=== PATIENT | female | born 1975 | race Two or more races ===

== ENCOUNTER 2018-02-07 18:56 | Emergency (ER) | payer OTHER ==
[2018-02-07 19:20] VITALS: BP 128/82; PULSE 94; TEMP 99; BMI 32.5
[2018-02-07] MEDS ORDERED: IBUPROFEN 600 MG TABLET (FP) PO ONE ×2 (20:18→20:26)
--- NOTE | 2018-02-07 20:23 | PDOC ---
History of Present Illness - General Chief Complaint: Pain Stated Complaint: SHOULDER PAIN Time Seen by Provider: 02/07/18 19:57 History Source: Patient Exam Limitations: No Limitations - History of Present Illness Initial Comments: 02/07/18 20:19 This Is a 43-year-old woman without significant past medical history presents emergency Department with atraumatic right shoulder pain starting last night while asleep. 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 Currently the pain is 6/10 in the right shoulder. Pain worsens with articulation of the shoulder. She denies trauma, fevers, chills, chest pain, shortness of breath. Past History - Past Medical History Allergies/Adverse Reactions: Allergies Allergy/AdvReac Type Severity Reaction Status Date / Time No Known Allergies Allergy Verified 02/07/18 19:19 Home Medications: Ambulatory Orders NK [No Known Home Medication] 02/07/18 - Suicide/Smoking/Psychosocial Hx Smoking Status: No Smoking History: Never smoked Have you smoked in the past 12 months: No Number of Cigarettes Smoked Daily: 0 Information on smoking cessation initiated: No Hx Alcohol Use: No Drug/Substance Use Hx: No Substance Use Type: None Review of Systems - Review of Systems Able to Perform ROS?: Yes Is the patient limited Swedish proficient: No Constitutional: No: Symptoms Reported HEENTM: No: Symptoms Reported Respiratory: No: Symptoms reported Cardiac (ROS): No: Symptoms Reported ABD/GI: No: Symptoms Reported : No: Symptoms Reported Musculoskeletal: Yes: See HPI Integumentary: No: Symptoms Reported Neurological: No: Symptoms reported Endocrine: No: Symptoms Reported Hematologic/Lymphatic: No: Symptoms Reported *Physical Exam - Vital Signs Last Vital Signs Temp Pulse Resp BP Pulse Ox 99.0 F 94 H 18 128/82 99 02/07/18 19:16 02/07/18 19:16 02/07/18 19:16 02/07/18 19:16 02/07/18 19:16 - Physical Exam General Appearance: Yes: Appropriately Dressed, Obese. No: Apparent Distress Neck: positive: Trachea midline, Supple Respiratory/Chest: positive: Lungs Clear, Normal Breath Sounds. negative: Respiratory Distress, Accessory Muscle Use Cardiovascular: positive: Regular Rhythm, Regular Rate, Other (2+ radial and ulnar pulses bilaterally) Musculoskeletal: positive: Normal Inspection, Decreased Range of Motion (Pain worsens with abduction, abduction and upper and downward rotation). 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 Pain worsens with abduction, abduction, upper rotation and downward rotation of the right shoulder 2+ radial and ulnar pulses present. Palpation of all surfaces reveals no deformity, dislocation, subluxation or crepitus X-ray of right shoulder, Motrin 600 mg orally now 02/07/18 21:17 X-ray of the shoulder as read by me: No fracture or dislocation is present. Before meals joints intact. We'll discharge the patient home with a sling and orthopedic follow-up *DC/Admit/Observation/Transfer Diagnosis at time of Disposition: Right shoulder pain Qualifiers: Chronicity: acute Qualified Code(s): M25.511 - Pain in right shoulder - Discharge Dispostion Disposition: HOME Condition at time of disposition: Stable Admit: No - Referrals Referrals: Jessenia Bose MD [Primary Care Provider] - Nilton Ladd MD [Staff Physician] - - Patient Instructions Additional Instructions: Take Tylenol or Motrin as needed for pain. Follow manufacturers instructions for appropriate dosage. Try not to carry weight as much as possible for the next 3 days. Use sling while awake. Ice applied to affected area may help alleviate pain. Return to emergency department for discoloration of the foot, numbness or tingling to the foot, worsening pain, or any other concerns. Thank you very much for choosing us to provide your emergent healthcare needs. - Post Discharge Activity Forms/Work/School Notes: Back to Work
== END 2018-02-07 21:37 | disposition home or self-care (01) ==
LOC: JERFT 18:56
DX: M25.511 Pain in right shoulder (principal); S49.81XA Other specified injuries of right shoulder and upper arm, initial encounter; Y93.H3 Activity, building and construction; Y93.89 Activity, other specified; Y92.59 Other trade areas as the place of occurrence of the external cause; Y99.0 Civilian activity done for income or pay
CPT/HCPCS: 73030-TC-RT-FY; 99281-25

== ENCOUNTER 2024-08-15 08:58 | Inpatient (IN) | payer OTHER, BC ==
[2024-08-11 16:19] VITALS: BMI 31.6
[2024-08-15] MEDS ORDERED: VANCOMYCIN 1,000 MG VIAL (RESTRICTED TO ID ONLY) ONE (10:34)
[2024-08-15] MEDS ORDERED: BUPIVACAINE HCL/PF 0.5% (5 MG/ML) 30 ML VIAL IJ ONE (11:56)
[2024-08-15] MEDS ORDERED: MIDAZOLAM HCL 2 MG/2 ML SINGLE DOSE VIAL ONE ×2 (11:56→12:30)
[2024-08-15] MEDS ORDERED: BUPIVACAINE LIPOSOME/PF (EXPAREL) 266 MG/20 ML VIAL ONE (11:57)
[2024-08-15] MEDS ORDERED: FENTANYL CITRATE/PF 50 MCG/ML VIAL ONE ×2 (11:57→16:19)
[2024-08-15] MEDS ORDERED: PROPOFOL 40 ML ONE ×3 (12:31→14:37)
[2024-08-15] MEDS ORDERED: TRANEXAMIC ACID 1000 MG/10 ML VIAL ONE ×2 (12:55→14:25)
[2024-08-15] MEDS ORDERED: BUPIVICAINE 0.25%/MORPH PF/KETOROLAC - 51ML DISP.SYRINGE IA ONE (14:11)
[2024-08-15] MEDS ORDERED: ONDANSETRON 4 MG/2 ML VIAL ONE (14:25)
[2024-08-15] MEDS ORDERED: HYDROmorphone HCL/PF 1 MG/ML VIAL ONE (15:22)
[2024-08-15] MEDS ORDERED: ONDANSETRON 4 MG/2 ML VIAL IVPUSH PRN (15:33)
[2024-08-15] MEDS ORDERED: MAG HYDROX/AL HYDROX/SIMETH 30 ML UNIT-DOSE CUP PO PRN (15:33)
[2024-08-15] MEDS ORDERED: guaiFENesin 200 MG/10 ML 10 ML UNIT-DOSE CUPS PO PRN (15:38)
[2024-08-15] MEDS ORDERED: ACETAMINOPHEN INJECTION 100 ML ONE (15:39)
[2024-08-15] MEDS: ACETAMINOPHEN 1000 MG/100 ML BAG IVPB ONE (15:40)
[2024-08-15] MEDS ORDERED: LACTATED RINGERS SOLUTION 1,000 ML IV SCH ×2 (15:45→16:00)
[2024-08-15] MEDS ORDERED: oxyCODONE HCL 5 MG TABLET PO PRN (15:50)
[2024-08-15] MEDS: ONDANSETRON 4 MG/2 ML VIAL IVPUSH PRN (16:27)
[2024-08-15] MEDS: oxyCODONE HCL 5 MG TABLET PO PRN (18:26)
[2024-08-15] MEDS: ACETAMINOPHEN 500 MG TABLET (FP) PO SCH (22:31)
[2024-08-15] MEDS: CEFAZOLIN SODIUM 2 GM in DEXTROSE 5%-WATER 100 ML IVPB SCH (22:31)
[2024-08-15] MEDS: SENNOSIDES/DOCUSATE COMBO (SENNA PLUS) TABLET (UD) PO SCH (22:32)
[2024-08-15] MEDS: GABAPENTIN 300 MG CAPSULE PO SCH (22:34)
[2024-08-15] MEDS: oxyCODONE HCL 10 MG SUSTAINED ACTING TABLET PO SCH (22:34)
[2024-08-16 08:19] LABS: HEMATOCRIT 24.7 % (32.4-45.2); HEMOGLOBIN 7.9 G/dL (10.7-15.3); MCH 29.3 pg (25.7-33.7); MCHC 31.8 g/dl (32.0-36.0); MEAN CELL VOLUME 92.2 fl (80-96); MEAN PLT VOLUME 8.3 fl (7.5-11.1); RBC 2.68 10^6/uL (3.60-5.2); RDW 13.8 % (11.6-15.6)
[2024-08-16 08:30] LABS: CALCIUM 8.5 mg/dl (8.5-10.1); CREATININE 0.6 mg/dl (0.6-1.3); POTASSIUM 4.4 mmol/L (3.5-5.1)
[2024-08-16] MEDS: MULTIVITAMINS (DAILY MVI) TABLET (FP) PO SCH (09:43)
[2024-08-16] MEDS: predniSONE 5 MG TABLET (UD) PO SCH (09:43)
[2024-08-16] MEDS: FOLIC ACID 1 MG TABLET (FP) PO SCH (09:43)
[2024-08-16] MEDS: PANTOPRAZOLE 40 MG TABLET PO SCH (09:43)
[2024-08-16] MEDS: ASPIRIN COATED 81 MG TABLET.EC PO SCH (09:43)
[2024-08-16] MEDS: SODIUM CHLORIDE 0.9% 500 ML INFUS.BAG IV ONE (09:47)
[2024-08-16] MEDS: traMADol HCL 50 MG TABLET PO PRN (12:35)
[2024-08-16 14:19] LABS: HEMATOCRIT 23.7 % (32.4-45.2); HEMOGLOBIN 7.7 G/dL (10.7-15.3); MCH 30.3 pg (25.7-33.7); MCHC 32.6 g/dl (32.0-36.0); MEAN CELL VOLUME 92.8 fl (80-96); MEAN PLT VOLUME 8.4 fl (7.5-11.1); RBC 2.55 10^6/uL (3.60-5.2); RDW 14.2 % (11.6-15.6); WHITE BLOOD COUNT 12.7 10^3/uL (4.0-10.8)
[2024-08-16 17:23] LABS: PLATELET ESTIMATE ADEQUATE
[2024-08-16] MEDS: CYCLOBENZAPRINE HCL 5 MG TABLET PO PRN (18:31)
[2024-08-16] MEDS: SODIUM CHLORIDE 1,000 ML IV SCH (18:31)
[2024-08-16] MEDS: oxyCODONE HCL 5 MG TABLET PO PRN (18:31)
[2024-08-17 08:21] LABS: HEMATOCRIT 22.2 % (32.4-45.2); MCH 28.5 pg (25.7-33.7); MEAN CELL VOLUME 91.8 fl (80-96); MEAN PLT VOLUME 8.2 fl (7.5-11.1); PLATELET COUNT 355.5 10^3/uL (134-434); RBC 2.42 10^6/uL (3.60-5.2); RDW 14.2 % (11.6-15.6); WHITE BLOOD COUNT 12.5 10^3/uL (4.0-10.8)
[2024-08-17 08:42] LABS: HEMOGLOBIN 6.9 G/dL (10.7-15.3)
[2024-08-17] MEDS: MAGNESIUM HYDROX 2400MG/30ML ORAL SUSPENSION 30 ML CUP PO ONE (09:02)
[2024-08-17 09:07] LABS: CREATININE 0.5 mg/dl (0.6-1.3); POTASSIUM 4.1 mmol/L (3.5-5.1)
[2024-08-17 20:06] VITALS: RESP 18
[2024-08-18 02:08] VITALS: TEMP 98.8
[2024-08-18 06:26] VITALS: BP 109/78; PULSE 70
[2024-08-18 08:37] LABS: ALBUMIN 3.2 g/dl (3.4-5.0); BILIRUBIN,TOTAL 0.9 mg/dl (0.2-1); CALCIUM 8.2 mg/dl (8.5-10.1); CREATININE 0.5 mg/dl (0.6-1.3); PHOSPHOROUS 2.6 (2.5-4.9); POTASSIUM 4.1 mmol/L (3.5-5.1); TOT PROT 5.3 g/dl (6.4-8.2)
[2024-08-18 09:56] LABS: BASO % 0.7 % (0-2.0); EOS % 3.7 % (0-4.5); HEMATOCRIT 27.5 % (32.4-45.2); HEMOGLOBIN 9.6 GM/dL (10.7-15.3); LYMPH % 19.5 % (8-40); MCH 29.9 pg (25.7-33.7); MCHC 34.8 g/dl (32.0-36.0); MEAN CELL VOLUME 85.8 fl (80-96); MEAN PLT VOLUME 8.1 fl (7.5-11.1); MONO % 7.3 % (3.8-10.2); NEUT % 68.8 % (42.8-82.8); PLATELET COUNT 360 10^3/uL (134-434); RBC 3.21 M/mm3 (3.60-5.2); RDW 13.7 % (11.6-15.6); WHITE BLOOD COUNT 12.1 K/mm3 (4.0-10.0)
== END 2024-08-18 13:45 | disposition home or self-care (01) | DRG 908 ==
LOC: FASUSAT 08:58 → SUATTDRO 08:58 → FM/S 16:39 → FASUSAT 08-18 07:40 → FM/S 08-18 07:40
PROVIDERS: ADMIT Internal Medicine; ATTEND Internal Medicine
PROC: 0SRD0JA Replacement of Left Knee Joint with Synthetic Substitute, Uncemented, Open Approach (ICD-10-PCS; principal; 2024-08-15 13:17)
PROC: 30233N1 Transfusion of Nonautologous Red Blood Cells into Peripheral Vein, Percutaneous Approach (ICD-10-PCS; 2024-08-17)
DX: M96.810 Intraoperative hemorrhage and hematoma of a musculoskeletal structure complicating a musculoskeletal system procedure (principal); D62 Acute posthemorrhagic anemia; M17.12 Unilateral primary osteoarthritis, left knee; I95.81 Postprocedural hypotension
CPT/HCPCS: 27447; C1776; 36415; 36430; 73560-TC-LT-FY; 80048; 80053; 81025; 83735; 84100; 85025; 85027; 86850; 86900; 86901; 86922; 88305-TC; 88311-TC; 94760; 97010-GP; 97116-GP; 97162-GP; J0131; P9058; V2630